=== PATIENT | female | born 1935 | race Caucasian/White ===

== ENCOUNTER 2024-02-05 09:22 | Emergency (ER) | payer OTHER, SELFPAY ==
[2024-02-05 09:27] VITALS: BP 133/65
[2024-02-05 09:55] VITALS: BMI 37.1
--- NOTE | 2024-02-05 09:55 | ED.GENMED ---
History of Present Illness
General
Chief Complaint: Abdominal Symptoms
Source: patient
Time Seen by Provider: 02/05/24 09:48
Travel History
Have you had any contact with someone who has COVID-19?: No
Do you have any symptoms of coronavirus? Fever > 100 degrees, chills, cough, shortness of breath, sore throat, loss of taste or smell, muscle aches, or headache?: No
History of Present Illness
History of Present Illness:
89-year-old female with past medical history of hypertension, hyperlipidemia, diverticulitis presenting to the emergency department for evaluation of abdominal discomfort that she states started as neck pain 2 weeks ago and worked its way down to
her abdomen now noting since last night after a bowel movement she has had pain in the left lower quadrant that has been persistent with intermittent sharper bursts prompting her to come to the ER today patient contacted her primary care physician
this morning and was advised nursing staff that she should come to the emergency department for further evaluation. She denies any other symptoms including fevers, nausea, vomiting, chills, rigors, urinary symptoms, dark/black stools or
hematochezia. States the pain does feel little similar to when she previously had diverticulitis.
Past History
Past History
ED Past Medical History: HTN and Hypercholesterolemia
ED Past Surgical History: Bowel resection, Gynecological and Orthopedic
Social History
Tobacco: Non-smoker
Alcohol: None
Drug: None
Personal:
Living: with family
Employment: Retired
Review of Systems
Review of Systems
All Other Systems: ROS reviewed and negative except as documented in HPI and ROS
Phy Exam
Physical Exam
Physical Exam:
GENERAL: Alert , in no apparent distress
EYE: Clear conjunctiva
NECK: Supple
ENT: o/p clr, mmm.
CARDIAC: Regular rate and rhythm, no murmur
LUNGS: Clear breath sounds bilaterally, no acute respiratory distress, no wheezes/rales/rhonchi
ABDOMEN: Soft, mild tenderness within the left lower quadrant, no r/g, no cvat
NEUROLOGICAL: Alert and oriented
SKIN: Warm and dry, skin intact.
MUSCULOSKELETAL: well perfused.
PSYCH: Normal and appropriate interaction.
Scores
Heart Failure Risk
Heart Failure Risk Score: Not Applicable
Heart Score for Chest Pain Patients
STEMI patient?: Not applicable
Withdrawal Assessment of Alcohol
Withdrawal Assessment Completed?: Not applicable
Course
Orders/Labs/Results
Orders:
Orders
02/05/24 09:54
Complete Blood Count/With Diff Urgent
Comprehensive Metabolic Panel Urgent
Lipase Urgent
02/05/24 10:00
Urinalysis Reflex To Culture Urgent
Date Specimen was Collected: 02/05/24
Time Specimen was Collected: 09:58
Urine Microscopic Reflex Cult Urgent
02/05/24 10:42
CT Abd/pel (oral only)-[facility] Only Urgent
Comment:
Reason For Exam: LLQ abd pain, hx diverticulitis, DORIAN
Iohexol [Omnipaque] See Protocol PO NOW STA
Abnormal Lab Results
02/05/24 02/05/24
09:54 10:00
WBC 16.5 H 10^3/uL
(4.8-10.8)
RBC 3.99 L 10^6/uL
(4.20-5.40)
Hgb 11.9 L g/dL
(12.0-16.0)
Hct 33.8 L %
(37.0-47.0)
MPV 10.7 H fL
(7.4-10.4)
Abs Immat Gran (auto) 0.1 H 10^3/uL
(0-0.05)
Absolute Neuts (auto) 13.9 H 10^3/uL
(1.4-6.5)
Absolute Lymphs (auto) 1.1 L 10^3/uL
(1.2-3.4)
Absolute Monos (auto) 1.5 H 10^3/uL
(0.1-0.6)
Neutrophils % 84.1 H %
(42.2-75.2)
Lymphocytes % 6.5 L %
(20.5-51.1)
Sodium 134 L mmol/L
(135-145)
Carbon Dioxide 18 L mmol/L
(22-30)
BUN 44 H mg/dl
(7-17)
Creatinine 1.6 H mg/dL
(0.6-1.0)
Glucose 144 H mg/dl
(70-99)
Urine Ketones Trace A
(Negative)
Ur Occult Blood Reflex 1+ A
(Negative)
Urine Bacteria (Reflex) Few A
(Negative)
02/05/24 09:54
02/05/24 09:54
Vital Signs
Initial and Last Documented VS:
Initial Vital Signs
Temp Pulse Resp BP Pulse Ox
98.2 F 72 16 133/65 98
02/05/24 09:27 02/05/24 09:27 02/05/24 09:27 02/05/24 09:27 02/05/24 09:27
Last Documented Vital Signs
Temp Pulse Resp BP Pulse Ox
98.2 F 67 21 119/76 98
02/05/24 09:27 02/05/24 13:00 02/05/24 13:00 02/05/24 11:00 02/05/24 09:27
MDM/Problems Addressed
Differential Diagnosis Includes:
Diverticulitis, diverticulosis, colitis, muscular etiology, appendicitis, renal/ureteral colic
MDM/Problems Addressed:
89-year-old female presenting to the emergency department for evaluation of abdominal pain that triage states has been ongoing for 2 weeks but patient reports that pain initially started in her neck area and worked its way down to abdomen. Symptoms
seem to be worse since a bowel movement yesterday. History of diverticulitis and pain worse in the left lower quadrant. Labs and CT ordered. Patient declining anything for her symptoms at this time. Reassessment following.
*Radiology
Radiology exam reviewed: radiology read reviewed
*Pulse Oximetry
Patient hypoxic: no
*Critical Care Note
Total Time (30-74mins, 75-104mins- exclusive of procedures): Not Applicable
Patient Management
Discussion with other providers: PCP
Escalation/DeEscalation of care consider admission/obs:
Patient CT scan shows acute sigmoid diverticulitis without any signs of abscess or drainable collection or perforation. Other findings chronic in nature. Patient remains pain-free, without fever and otherwise would prefer to be discharged home.
Due to her renal function the adjusted the Augmentin dose to 500 mg p.o. twice daily. I notified patient's primary care physician as patient will need outpatient follow-up and have repeat labs to ensure improved renal function as well as improved
leukocytosis. Patient is aware of return precautions emergency department. Otherwise stable for discharge home.
ED Attending Note
-
Portions of this chart may have been created with voice recognition software.� Occasional wrong word or��sound alike� substitutions may have occurred due to the inherent limitations of voice recognition software.
Discharge Plan
Departure
Patient Disposition: Home (Routine Discharge)
Date of Disposition: 02/05/24
Time of Disposition: 13:55
Patient with high blood pressure during this ER visit?: No
Discharge Problem:
Diverticulitis of sigmoid colon
Instructions: Diverticulitis (DC)
Prescriptions:
New
amoxicillin-pot clavulanate [Augmentin] 500-125 mg tablet
1 tab PO BID 10 Days Qty: 20 0RF
No Action
allopurinol 100 MG tablet
100 mg PO DAILY
lovastatin 20 MG tablet
20 mg PO DAILY
atenolol 50 MG tablet
50 mg PO DAILY
cholecalciferol (vitamin D3) 1,000 UNITS tablet
1,000 units PO DAILY
mupirocin 1 APPLIC ointment
1 applic intranasal BID Qty: 1 0RF
Patient Comments:
patient started medication on monday09/14/19 in am and was taking BID. last dose taken at 0430 on 09/18/19
sennosides [senna] 1 TABLET tablet
2 tab PO BID 0RF
aspirin 325 MG tablet
325 mg PO DAILY 0RF
magnesium hydroxide 30 ML suspension
30 ml PO DAILYPRN PRN (Reason: constipation) 0RF
docusate sodium 100 MG capsule
100 mg PO BID 0RF
ibuprofen [Advil Liqui-Gel] 200 MG capsule
400 mg PO DAILY Qty: 0 0RF
Rx Instructions:
*take with food
*do not take within 2hours of ASA
acetaminophen [Tylenol Ex Str Arthritis Pain] 500 MG tablet
1,000 mg PO QID Qty: 0 0RF
Rx Instructions:
standing order
triamterene-hydrochlorothiazid 1 EACH tablet
1 tab PO MOWEFR Qty: 0 0RF
Rx Instructions:
hold systolic blood pressure <130
oxycodone 5 MG tablet
5 mg PO Q4HPRN PRN (Reason: moderate-severe pain) Qty: 30 0RF
Rx Instructions:
1 tab moderate pain or 2 if pain severe
Dx total joint replacement
ongoing therapy
famotidine 20 MG tablet
20 mg PO HS Qty: 30 0RF
Referrals:
Arnel Euceda DO [Family Provider] -
Interventions
Interventions:
*Risk Screen - Suicide Last Done: 02/05/24 09:55
*General Assessment Last Done: 02/05/24 09:55
*Neglect/Abuse Screening Last Done: 02/05/24 09:55
ED- Fall Risk Assessment Last Done: 02/05/24 09:55
*ED COVID-19 Vaccine History Last Done: 02/05/24 09:27
KB-Lxgenv-Oyfjydtzop Assessment Last Done: 02/05/24 09:52
[2024-02-05 10:00] VITALS: BP 161/77
[2024-02-05 10:31] LABS: Urine Albumin Trace (Neg - Trace); Urine Bilirubin Negative (Negative); Urine Character Clear (Clear); Urine Color Yellow; Urine Glucose Negative (Negative); Urine Ketone Trace (Negative); Urine Leukocyte Negative (Negative); Urine Nitrite Negative (Negative); Urine Occult Blood 1+ (Negative); Urine Specific Gravity 1.015 (<1.030); Urine Urobilinogen Negative (Neg - 1+)
[2024-02-05 10:37] LABS: Urine Squamous Cell >30 /LPF (Few)
[2024-02-05 10:38] LABS: Urine Bacteria Few (Negative); Urine Red Blood Cell 0-2 /HPF (0-2); Urine White Cell 0-2 /HPF (0-5)
[2024-02-05 10:40] LABS: ALT (SGPT) 18 U/L (0-35); AST (SGOT) 24 U/L (14-36); Albumin 4.4 g/dl (3.5-5.0); Alkaline Phosphatase 91 U/L (38-126); Blood Urea Nitrogen 44 mg/dl (7-17); Calcium 9.8 mg/dl (8.4-10.2); Carbon Dioxide 18 mmol/L (22-30); Chloride 104 mmol/L (98-107); Estimated Creatinine Clearance 28 ml/min; Glucose 144 mg/dl (70-99); Lipase 36 U/L (23-300); Potassium 3.5 mmol/L (3.5-5.1); Sodium 134 mmol/L (135-145); Total Protein 7.7 g/dl (6.3-8.2); eGFR 31.02
[2024-02-05] MEDS: OMNIPAQUE 50 ML PO (10:57)
[2024-02-05 11:00] VITALS: BP 119/76
[2024-02-05 11:17] LABS: % Basophils 0.1 % (0-2); % Eosinophils 0.1 % (0-6); % Immature Granulocytes 0.4 % (0-0.5); % Lymphocytes 6.5 % (20.5-51.1); % Monocytes 8.8 % (1.7-9.3); % Neutrophils 84.1 % (42.2-75.2); Absolute Immature Granulocytes 0.1 10^3/uL (0-0.05); Absolute Lymphocytes 1.1 10^3/uL (1.2-3.4); Absolute Monocytes 1.5 10^3/uL (0.1-0.6); Absolute Neutrophils 13.9 10^3/uL (1.4-6.5); Hematocrit 33.8 % (37.0-47.0); Hemoglobin 11.9 g/dL (12.0-16.0); Mean Corp Hgb Conc. 35.2 g/dL (33.0-37.0); Mean Corpuscular Hgb 29.8 pg (27.0-31.0); Mean Corpuscular Volume 84.7 fL (81.0-99.0); Mean Platelet Volume 10.7 fL (7.4-10.4); Nucleated Red Blood Cells % 0 %; Platelet Count 184 10^3/uL (130-400); Red Blood Cell Count 3.99 10^6/uL (4.20-5.40); Red Cell Dist. Width 13.2 % (11.5-14.5); White Blood Cell Count 16.5 10^3/uL (4.8-10.8)
== END 2024-02-05 14:18 | disposition home or self-care (01) ==
LOC: EMR 09:22
PROVIDERS: Physician Assistant Medical; EMERGENCY PHYSICIAN Emergency Medicine; FAMILY PHYSICIAN Internal Medicine
DX: K57.32 Diverticulitis of large intestine without perforation or abscess without bleeding (principal); I10 Essential (primary) hypertension; E78.00 Pure hypercholesterolemia, unspecified
CPT/HCPCS: 99284; 74176; 80053; 81003; 81015; 83690; 85025

== ENCOUNTER → 2025-09-13 09:14 | Outpatient (REF) | payer OTHER, SELFPAY | LOC: RAD 09:14 | PROVIDERS: ATTENDING PHYSICIAN Nurse Practitioner Family; FAMILY PHYSICIAN Internal Medicine | DX: I35.0 Nonrheumatic aortic (valve) stenosis (principal); I27.20 Pulmonary hypertension, unspecified; N18.32 Chronic kidney disease, stage 3b; R60.0 Localized edema | CPT/HCPCS: 71046; 93005 ==

== ENCOUNTER → 2025-09-27 10:35 | Outpatient (REF) | payer OTHER, SELFPAY | LOC: RCS 10:35 | PROVIDERS: ATTENDING PHYSICIAN Internal Medicine | DX: I35.0 Nonrheumatic aortic (valve) stenosis (principal) | CPT/HCPCS: 93306 ==

== ENCOUNTER → 2025-10-15 11:35 | Outpatient (REF) | payer OTHER, SELFPAY | LOC: RAD 11:35 | PROVIDERS: ATTENDING PHYSICIAN Internal Medicine | DX: I77.810 Thoracic aortic ectasia (principal) | CPT/HCPCS: 71275; Q9967 ==